=== PATIENT | male | born 1995 | race Caucasian/White ===

== ENCOUNTER 2017-12-03 23:49 | Emergency (ER) | payer OTHER ==
--- NOTE | 2017-12-04 00:15 | EDPHY ---
H & P Stated Complaint: R THUMB JAMMED/SOCCER GOALIE Time Seen by Provider: 12/03/17 23:58 HPI/ROS: Chief Complaint: Right thumb injury HPI: 22-year-old male was playing soccer when he landed on his outstretched right hand and dislocated his right thumb. No prior injuries. ROS: 10 point Review of Systems is negative except as noted in the HPI. Family History: [non-contributory] Physical Exam: General: Awake, alert, no acute distress right hand: Patient has an obvious deformity at his MCP joint of his right thumb consistent with dislocation. He has normal perfusion distally. 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 Imaging: I viewed and interpreted images myself Procedures: Procedure: Dislocation reduction. The right thumb was reduced in the usual fashion without complications. Post reduction the patient's neurovascular exam is normal. Post reduction x-ray demonstrates reduction of the joint to the anatomic position. The procedure was performed by myself. Differential Diagnosis: X-ray reveals no evidence of a fracture. Patient placed in a Velcro thumb splint. Will be discharged with referral to hand surgery follow-up. - Data Points Medications Given: Discontinued Medications Ibuprofen (Motrin) 600 mg PO EDNOW ONE Stop: 12/04/17 00:32 Last Admin: 12/04/17 00:53 Dose: 600 mg Departure - Departure Disposition: Home, Routine, Self-Care Clinical Impression: Thumb dislocation Condition: Good Instructions: Finger Dislocation (ED) Additional Instructions: Follow up with hand surgeon in 3-4 days for further evaluation. Return to the emergency department for increasing pain, numbness, weakness, or any other concerns. He may alternate ibuprofen with acetaminophen as needed for pain. Keep the thumb in the splint until cleared by the hand surgeon. Referrals: Yanci Gonsalez MD [Medical Doctor] - As per Instructions
[2017-12-04] MEDS ORDERED: IBUPROFEN 600 MG TAB PO ONE (00:31)
[2017-12-04 01:16] VITALS: BP 130/77
== END 2017-12-04 01:15 | disposition home or self-care (01) ==
PROC: 0RSSXZZ Reposition Right Carpometacarpal Joint, External Approach (ICD-10-PCS; principal; 2017-12-03)
DX: S63.104A Unspecified dislocation of right thumb, initial encounter (principal); W23.0XXA Caught, crushed, jammed, or pinched between moving objects, initial encounter; Y99.8 Other external cause status; Y93.66 Activity, soccer
CPT/HCPCS: L3908